=== PATIENT | male | born 1985 | race Caucasian/White ===

== ENCOUNTER 2020-11-01 16:59 | Emergency (ER) | payer BC ==
--- NOTE | 2020-11-01 17:26 | EDM.PDOC ---
ED HPI GENERAL MEDICAL PROBLEM - General Stated Complaint: HIT HIGH VOLTAGE POWER LINE Time Seen by Provider: 11/01/20 17:23 Source of Information: Reports: Patient History Limitations: Reports: No Limitations - History of Present Illness INITIAL COMMENTS - FREE TEXT/NARRATIVE: 35-year-old male who reports that approximately 10:30 AM today he was using a sprayer tractor and he had extended the boom and noted that it was close to a high-voltage line and was attempting to bring them back in but one section of the boom got very close to the high-voltage line and the power arced over to the boom and the patient reports that he felt "something go through my body" and he felt "pence all over his body" for a short period of time. He reports that the tractor sprayer had very significant damage to the electrical system. He felt somewhat anxious after this occurred but had no pain and had no shortness of breath. There was no loss of consciousness at that time. He did go about his business and was trying to do his work and then approximate one hour after this she began to have a tenseness in the muscles of his neck and also a tenseness in his anterior chest and this continued through the day. In the afternoon he began to have some soreness in both of his legs and all distances continued and when he went home, his called a relative who was a nurse and they convinced him that he needed to come into the emergency department for evaluation. The patient has had no nausea or vomiting. He has had no dizziness. He does feel somewhat shaky all over. He has really any other than the tenseness and he would rate that tenseness as about a 2/10. He has no clear numbness in his extremities. He has no vision problems. He has no headache. Patient does report that he has been drinking liquids quite well today. He does report that he has had urine output today but it has been less than normal. He has noticed no hematuria or dysuria. There are no other associated signs or symptoms. There are no other modifying factors. Onset: Today (10:30 AM) Duration: Constant Location: Reports: Neck, Chest, Lower Extremity, Left, Lower Extremity, Right Quality: Reports: Other (Tenseness) Severity: Mild Improves with: Reports: None Worsens with: Reports: None Context: Reports: Other (As above.) Associated Symptoms: Reports: No Other Symptoms Treatments MANAGER PE: Reports: Other (see below) (Nothing.) Chest Pain Score (Numeric/FACES): 2 - Related Data Allergies Allergy/AdvReac Type Severity Reaction Status Date / Time No Known Allergies Allergy Verified 08/01/13 09:42 Home Meds: Home Meds NK [No Known Home Meds] 11/01/20 [History] Past Medical History - Past Health History Medical/Surgical History: Denies Medical/Surgical History Social & Family History - Tobacco Use Tobacco Use Status *Q: Current Every Day Tobacco User Tobacco Use Within Last Twelve Months: Snuff/Dip - Alcohol Use Alcohol Use History: Yes Alcohol Use Frequency: Daily (1-2 beers daily.) - Living Situation & Occupation Living situation: Reports: Occupation: Employed (He is a cabrera.) ED ROS GENERAL - Review of Systems Review Of Systems: See Below Constitutional: Reports: Malaise. Denies: Diaphoresis HEENT: Denies: Throat Pain, Vision Change Respiratory: Denies: Shortness of Breath, Cough Cardiovascular: Reports: Chest Pain (Chest tenseness). Denies: Palpitations GI/Abdominal: Denies: Abdominal Pain, Nausea, Vomiting : Denies: Dysuria, Hematuria Musculoskeletal: Reports: Neck Pain, Leg Pain (Bilateral leg soreness.), Muscle Pain Skin: Denies: Diaphoresis, Wound Neurological: Denies: Confusion, Dizziness Psychiatric: Reports: Anxiety Hematologic/Lymphatic: Denies: Easy Bleeding, Easy Bruising ED EXAM, GENERAL - Physical Exam Exam: See Below Exam Limited By: No Limitations General Appearance: Alert, WD/WN, No Apparent Distress, Other (He is awake, alert and appropriate. He is nontoxic appearing.) Eye Exam: Bilateral Eye: EOMI, Normal Inspection, PERRL Ears: Normal External Exam, Hearing Grossly Normal Ear Exam: Bilateral Ear: Auricle Normal Nose: Normal Inspection, Normal Mucosa, No Blood Throat/Mouth: Normal Inspection, Normal Oropharynx, Normal Voice, No Airway Compromise Head: Atraumatic, Normocephalic Neck: Normal Inspection, Supple, Non-Tender, Full Range of Motion Respiratory/Chest: No Respiratory Distress, Lungs Clear, Normal Breath Sounds, No Accessory Muscle Use, Chest Non-Tender Cardiovascular: Normal Peripheral Pulses, Regular Rate, Rhythm, No Murmur Peripheral Pulses: 2+: Radial (L), Radial (R) GI/Abdominal: Normal Bowel Sounds, Soft, Non-Tender, No Mass Back Exam: Normal Inspection Extremities: Normal Inspection, Normal Range of Motion, Non-Tender, No Pedal Edema, Normal Capillary Refill Neurological: Alert, Oriented, CN II-XII Intact, Normal Cognition, No Motor/Sensory Deficits Psychiatric: Normal Affect Skin Exam: Warm, Dry, Intact, Normal Color, No Rash #1 Interpretation EKG Date: 11/01/20 Time: 17:22 Rhythm: NSR Rate (Beats/Min): 76 Igo: Normal P-Wave: Present QRS: Normal ST-T: Normal QT: Normal Comparison: NA - No Prior EKG Course - Vital Signs Last Recorded V/S: Last Vital Signs Temp 36.9 C 11/01/20 17:00 Pulse 75 11/01/20 17:00 Resp 20 11/01/20 17:00 BP 143/94 H 11/01/20 17:00 Pulse Ox 99 11/01/20 17:00 - Orders/Labs/Meds Orders: Active Orders 24 hr Category Date Time Status Chest 1V Frontal [CR] Stat Exams 11/01/20 17:46 Taken Peripheral IV Insertion Adult [OM.PC] Routine Oth 11/01/20 19:11 Ordered EKG 12 Lead [EK] Routine Ther 11/01/20 17:45 Ordered Labs: Laboratory Tests 11/01/20 11/01/20 11/01/20 Range/Units 18:00 18:00 18:00 WBC 11.9 H (3.2-10.1) x10-3/uL RBC 4.65 (3.90-5.90) x10(6)uL Hgb 14.2 (12.9-17.7) g/dL Hct 42.2 (38.3-50.1) % MCV 90.8 (80.8-98.7) fL MCH 30.5 (27.0-33.3) pg MCHC 33.6 (28.7-35.3) g/dL RDW 13.3 (12.4-15.0) % Plt Count 273 (117-477) x10(3)uL MPV 9.6 (6.7-11.0) fL Neut % (Auto) 66.4 (40.3-71.8) % Lymph % (Auto) 24.1 (15.8-45.3) % Arroyo % (Auto) 7.5 (5.5-15.2) % Eos % (Auto) 1.0 (0.1-6.8) % Baso % (Auto) 1.0 (0.3-3.8) % Neut # (Auto) 7.9 H (1.7-6.9) x10-3/uL Lymph # (Auto) 2.9 (0.5-4.5) x10-3/uL Arroyo # (Auto) 0.9 (0.0-1.2) x10-3/uL Eos # (Auto) 0.1 (0.0-0.6) x10-3/uL Baso # (Auto) 0.1 (0.0-0.3) x10-3/uL Sodium 141 (135-145) mmol/L Potassium 3.9 (3.5-5.3) mmol/L Chloride 103 (100-110) mmol/L Carbon Dioxide 29 (21-32) mmol/L BUN 13 (7-18) mg/dL Creatinine 1.1 (0.70-1.30) mg/dL Est Cr Clr Drug Dosing TNP Estimated GFR (MDRD) > 60 (>60) BUN/Creatinine Ratio 11.8 (9-20) Glucose 100 (80-116) mg/dL Calcium 8.9 (8.6-10.2) mg/dL Magnesium 2.1 (1.8-2.5) mg/dL Total Bilirubin 0.4 (0.1-1.3) mg/dL AST 21 (5-25) IU/L ALT 29 (12-36) U/L Alkaline Phosphatase 87 (56-112) IU/L Creatine Kinase 237 H (60-160) IU/L Troponin I 5.4 (4.0-60.3) pg/mL Total Protein 7.7 (6.0-8.0) g/dL Albumin 4.4 (3.5-5.2) g/dL Globulin 3.3 g/dL Albumin/Globulin Ratio 1.3 Meds: Medications Discontinued Medications Generic Name Dose Route Start Last Admin Trade Name Freq PRN Reason Stop Dose Admin Sodium Chloride 1,000 mls @ 999 mls/hr 11/01/20 19:11 11/01/20 19:46 Normal Saline IV 11/01/20 20:11 999 mls/hr .BOLUS ONE Administration Sodium Chloride 1,000 mls @ 150 mls/hr 11/01/20 19:15 Normal Saline IV ASDIRECTED MAR Sodium Chloride 10 ml 11/01/20 19:11 Sodium Chloride 0.9% 10 Ml Syringe FLUSH ASDIRECTED PRN Keep Vein Open - Radiology Interpretation Free Text/Narrative:: Portable chest x-ray showed no acute disease. - Re-Assessments/Exams Free Text/Narrative Re-Assessment/Exam: 11/01/20 18:50: All of the patient's lab tests are reassuringly normal except for a slightly elevated CK of 237. His chest x-ray is normal. His EKG is normal. For discussing this with the patient, I did call the trauma surgeon at [facility] in [place], Dr. Shaw, and discussed the patient with him. He feels that the patient will need admission with observation. Currently, we do not have any beds available at our facility and in addition to this, there is no surgeon director translational for this patient. Therefore, I will discuss all of this with the patient and I feel that he will need to be transferred to [facility] in [place]. 11/01/20 19:05: I discussed all of this with the patient and his . I included the recommendations of Dr. Shaw. My recommendations would be that he be transferred to [facility] in [place] for trauma surgical evaluation and admission with continued/ongoing observation. He and his are in agreement with this plan. The patient will need to be transferred via ALS ambulance to [facility]. I will call and discuss this with the doctors at [facility] in [place] again. 11/01/20 19:20: I discussed the patient's case with Dr. Mi, ER physician at [facility], and he has agreed to accept the patient in transfer. And is remaining hemodynamically and neurologically stable at this point. Departure - Departure Time of Disposition: 20:08 Disposition: DC/Tfer to Acute Hospital 02 Condition: Fair Clinical Impression: Myalgia Shock from electric current Qualifiers: Encounter type: initial encounter Qualified Code(s): T75.4XXA - Electrocution, initial encounter - Discharge Information Referrals: PCP,None [Primary Care Provider] - Sepsis Event Note (ED) - Focused Exam Vital Signs: Vital Signs Temp Pulse Resp BP Pulse Ox 11/01/20 17:00 36.9 C 75 20 143/94 H 99 - My Orders Last 24 Hours: My Active Orders 11/01/20 17:45 EKG 12 Lead [EK] Routine 11/01/20 17:46 Chest 1V Frontal [CR] Stat 11/01/20 19:11 Peripheral IV Insertion Adult [OM.PC] Routine - Assessment/Plan Last 24 Hours: My Active Orders 11/01/20 17:45 EKG 12 Lead [EK] Routine 11/01/20 17:46 Chest 1V Frontal [CR] Stat 11/01/20 19:11 Peripheral IV Insertion Adult [OM.PC] Routine
[2020-11-01] MEDS ORDERED: Sodium Chloride 0.9% 1,000 ML IV ONE (19:11)
[2020-11-01] MEDS ORDERED: Sodium Chloride 0.9% 10 ML Syringe FLUSH PRN (19:11)
[2020-11-01] MEDS ORDERED: Sodium Chloride 0.9% 1,000 ML IV SCH (19:15)
--- NOTE | 2020-11-02 16:35 | CR ---
INDICATION: Chest discomfort, high voltage exposure, ran into electrical box with tractor sprayer. CHEST ONE VIEW: An AP upright portable view of the chest was obtained 11/01/20 - no comparisons. Overlying EKG leads were noted. Heart and mediastinum were unremarkable. Minimal dextroconvex scoliosis of the lower thoracic spine is noted. An active infiltrate, effusion, contusion, or pneumothorax was not identified. IMPRESSION: No acute process. MTDD
== END 2020-11-01 20:08 ==
LOC: FB.ED 16:59
DX: T75.4XXA Electrocution, initial encounter (principal); M79.10 Myalgia, unspecified site; Z72.0 Tobacco use
CPT/HCPCS: 36415; 71045; 80053; 82550; 83735; 84484; 85025; 93005; 99285; J7030